=== PATIENT | female | born 1980 | race Caucasian/White ===

== ENCOUNTER 2024-09-18 11:30 | Inpatient (IN) ==
--- NOTE | 2024-09-18 12:06 | Emergency Department Note ---
Impression & Plan Suicide attempt, Depression, Hypokalemia ED Provider Note NAME: GILLES ABREU AGE: 44 SEX: F : 1980 ARRIVES VIA: Walk-In INFORMANT: Patient ED PROVIDER(S): Reece Mcknight DO CHIEF COMPLAINT: Suicide attempt HPI: Patient is a 44-year-old female who presents ER for suicide attempt. She notes that she has tried to kill her self in the past 2 to 3 weeks daily. She has been taking about 12 to 16 25mg tablets of Benadryl at night. She has not taken any for the past 48 hours. She is also taking sleeping tablets with this 1-2 gelcaps [id number]. She denies any chest pain shortness of breath. No nausea or vomiting. She does admit to feeling little shaky. No focal weakness or numbness in the arms or legs. She does also admit to a little bit of blurry vision. ADDITIONAL HISTORY OBTAINED: Per HPI Chronic Medical/Social Conditions Affecting Care: Per HPI PAST MEDICAL HISTORY:See Below PAST SURGICAL HISTORY:See Below FAMILY HISTORY:See Below SOCIAL HISTORY:See Below HOME MEDICATIONS:See Below ALLERGIES:See Below VITALS:See Below PHYSICAL EXAMINATION: GENERAL: Sitting up in bed, alert, well appearing, well nourished, no distress, non-toxic EYE EXAM: normal conjunctiva. PERRL and EOM's grossly intact. OROPHARYNX: no exudate, no erythema, lips, buccal mucosa, and tongue normal and mucous membranes are moist NECK: supple, no nuchal rigidity, no adenopathy, non-tender LUNGS: Clear to auscultation. Normal chest wall mechanics HEART: no murmurs, S1 normal and S2 normal ABDOMEN: abdomen soft, non-tender, normo-active bowel sounds, no masses, no rebound or guarding. BACK: Back is symmetrical on inspection and there is no deformity, no midline tenderness, no CVA tenderness. SKIN: no rashes and no bruising UPPER EXTREMITIES: upper extremities are grossly normal. LOWER EXTREMITIES: No pitting edema. NEURO EXAM: Normal sensorium, cranial nerves II-XII intact, normal speech, no weakness of arms, no weakness of legs. No drift. Finger to nose intact. Gross sensation intact. MEDICAL DECISION MAKING: Patient is a 44-year-old female who presents ER for the above-stated complaint. IV was established and blood work was obtained. Labs show no significant leukocytosis or anemia. BMP with mild hypokalemia at 3.4. Potassium was repleted orally. LFTs and bilirubin is unremarkable. Troponin is negative. Lipase is normal. TSH unremarkable. UA was contaminated with multiple epithelial cells. No urinary symptoms and consequently will not treat at this time. CT head was negative per radiology was obtained due to some blurry vision. Chest x-ray was unremarkable. Tox was negative. Alcohol negative. Heart rate trended down to the 90s. No signs of urinary retention and she otherwise has no complaints at this time. She was updated at bedside. Currently awaiting admission on a 201 and placement. Patient was signed out Dr. Mcgowan pending placement. Discussed with Pt concerning signs and symptoms to watch out for. Pt was instructed to follow up with their PCP and discussed with the patient their option to return to the ED at anytime for persistent or worsening symptoms. The appropriate anticipatory guidance and out-patient management, including indications for return to the emergency department, were explained at length to the patient and understood. Consults/Care Managements Discussions: Per [facility] Triage Nursing notes reviewed. Limited review of prior medical records performed Vital Signs: reviewed and remarkable for no significant abnormalities Differential diagnosis: ER treatment provided: See below Diagnostics interpreted by me include EKG and cardiac monitoring as listed below: -Cardiac Monitoring: An order was placed for continuous cardiac monitoring. The monitor shows a rate of 90 with sinus rhythm. -ECG: Sinus tachycardia rate of 103 Normal axis No PVCs QTc 466 QRS 96 -Laboratory studies:Interpreted by me as stated above in MDM and shown below. Imaging studies: Xrays: As interpreted by me: Chest x-ray is unremarkable CTs show: CT head was obtained and negative per radiology Procedures:none Critical Care: None Past Med/Surg History Problem List (Updated 09/18/24 @ 15:50 by Reece Mcknight DO) Hypokalemia (Acute) Depression (Acute) Suicide attempt (Acute) Social History Smoking Status: Never smoker Preferred Language: Maltese Feels Safe at Home: Yes Allergies Allergies Allergy/AdvReac Type Severity Reaction Status Date / Time ERYC Allergy Unknown KARRIE,NAUSEA Uncoded 09/08/02 21:28 VOMITING Results & Data (ED) Vital Signs Vital Signs - 24 hr 09/18/24 11:38 09/18/24 12:07 09/18/24 12:07 Temperature 36.6 C Temperature Source Temporal Artery Scan Pulse Rate 90 97 H Pulse Rate [Apical] 95 H Pulse Rhythm Regular Pulse Rhythm [Apical] Regular Pulse Strength [Apical] Normal Respiratory Rate 18 20 20 Respiratory Effort / Characteristics Non-Labored Spontaneous Respiratory Depth Normal Respiratory Pattern Regular Blood Pressure 143/81 H Blood Pressure [Left Arm] Blood Pressure [Right Arm] 146/99 H Blood Pressure Mean 101 Blood Pressure Mean [Left Arm] Blood Pressure Mean [Right Arm] 114 Blood Pressure Position Sitting Blood Pressure Position [Right Arm] Lying Pulse Oximetry 91 94 95 Oxygen Delivery Method Room Air Room Air Room Air Sepsis Recent Fever Within 48 Hours No Sepsis New/Unexplained Change in Mental Status N/A Sepsis Action Taken by Nursing No Action Required 09/18/24 12:14 09/18/24 14:00 09/18/24 14:28 Temperature Temperature Source Pulse Rate 95 H Pulse Rate [Apical] 83 84 Pulse Rhythm Pulse Rhythm [Apical] Regular Pulse Strength [Apical] Normal Respiratory Rate 20 18 Respiratory Effort / Characteristics Non-Labored Spontaneous Non-Labored Spontaneous Respiratory Depth Normal Normal Respiratory Pattern Regular Regular Blood Pressure Blood Pressure [Left Arm] 115/77 Blood Pressure [Right Arm] 175/76 H Blood Pressure Mean Blood Pressure Mean [Left Arm] 89 Blood Pressure Mean [Right Arm] 109 Blood Pressure Position Blood Pressure Position [Right Arm] Lying Pulse Oximetry 98 98 Oxygen Delivery Method Room Air Room Air Sepsis Recent Fever Within 48 Hours Sepsis New/Unexplained Change in Mental Status Sepsis Action Taken by Nursing Laboratory Data 09/18/24 12:03 09/18/24 12:03 Lab Results 09/18/24 09/18/24 Range/Units 12:03 12:06 WBC 7.09 (4.8-10.8) K/ul RBC 3.92 L (4.20-5.40) M/uL Hgb 12.4 (12.0-16.0) g/dl Hct 36.2 L (37.0-47.0) % MCV 92.3 (80.0-100.0) fL MCH 31.6 (25.0-34.0) pg MCHC 34.3 (32.0-36.0) g/dL RDW Std Deviation 41.4 (36.4-46.3) fL RDW Coeff of Deonte 12.2 (11.5-14.5) % Plt Count 326 (130-400) K/uL MPV 10.4 (9.4-12.4) fL Immature Gran % (Auto) 0.1 % Neut % (Auto) 65.7 % Lymph % (Auto) 28.9 % [place] % (Auto) 4.8 % Eos % (Auto) 0.1 % Baso % (Auto) 0.4 % Neut # (Auto) 4.65 (1.40-6.50) K/uL Lymph # (Auto) 2.05 (1.20-3.40) K/uL [place] # (Auto) 0.34 (0.11-0.59) K/uL Eos # (Auto) 0.01 (0.00-0.50) K/uL Baso # (Auto) 0.03 (0.00-0.20) K/uL Immature Gran # (Auto) 0.01 (0.01-0.20) K/uL Sodium 137 (136-145) mmol/L Potassium 3.4 L (3.5-5.1) mmol/L Chloride 101 (98-107) mmol/L Carbon Dioxide 26 (21-32) mmol/L Anion Gap 10 (3-11) BUN 7 (6-23) mg/dl Creatinine 0.95 (0.6-1.2) mg/dl Est Cr Clr Drug Dosing 78.1 ml/min eGFR 76.71 BUN/Creatinine Ratio 7.4 L (10-20) Glucose 96 (70-99(Fasting)) mg/dl Calcium 9.3 (8.6-10.3) mg/dl Magnesium 1.8 (1.7-2.4) mg/dl Total Bilirubin 0.5 (0.2-1.0) mg/dl AST 14 (13-39) U/L ALT 8 (7-52) U/L Alkaline Phosphatase 83 (34-104) U/L Troponin I High Sens < 2.3 (0-14) pg/ml Total Protein 8.0 (6.0-8.3) gm/dl Albumin 4.2 (3.4-5.0) gm/dl Globulin 3.8 (2.5-4.0) gm/dl Albumin/Globulin Ratio 1.1 (0.9-2) Lipase 9 L (11-82) U/L TSH 0.774 (0.300-4.500) uIu/ml Urine Color Yellow Urine Appearance Turbid A (Clear) Urine pH 6.0 (4.5-7.5) Ur Specific [place] 1.023 (1.000-1.030) Urine Protein 1+ H (Negative) Urine Glucose (UA) Negative (Negative) Urine Ketones 1+ H (Negative) Urine Blood Negative (Negative) Urine Nitrite Negative (Negative) Urine Bilirubin Negative (Negative) Urine Urobilinogen Negative (Negative) Ur Leukocyte Esterase Trace H (Negative) Urine WBC (Auto) 11-20 H (0-5) /hpf Urine RBC (Auto) 0-2 (0-2) /hpf U Hyaline Cast (Auto) 0-2 (0-2) /lpf U Epithel Cells (Auto) >20 H (0-2) /hpf Urine Bacteria (Auto) 4+ H (None Seen) Urine Mucus Present A (None Prsent) Urine Comment Salicylates < 3.0 L (3.0-30) mg/dl Urine Opiates Screen Neg (Neg) Ur Methadone, Qual Neg (Neg) Urine Fentanyl Screen Neg (Neg) Acetaminophen < 3 L (10-30) ug/ml Urine Barbiturates Neg (Neg) Ur Phencyclidine (PCP) Neg (Neg) U Amphetamin/Meth Scrn Neg (Neg) MDMA (Ecstasy) Screen Neg (Neg) U Benzodiazepines Scrn Neg (Neg) Ur Cocaine Metabolite Neg (Neg) U Marijuana (THC) Screen Neg (Neg) Ethyl Alcohol mg/dL < 10.0 (<10.0) mg/dl Administered Medications Discontinued Medications Sodium Chloride (Nss) 1,000 mls @ 999 mls/hr IV .Q1H1M [facility] Stop: 09/18/24 14:15 Last Infusion: 09/18/24 14:15 Dose: Infused Documented By: Admin: 09/18/24 13:13 Dose: 999 mls/hr Documented By: Infusion: 09/18/24 13:13 Dose: Infused Documented By: Admin: 09/18/24 12:16 Dose: 999 mls/hr Documented By: WILDER Imaging Data Radiologist's Impression: Chest X-Ray 09/18/24 11:44 XR chest 1V portable HISTORY: 44 years-old Female Chest pain, nonspecific COMPARISON: None TECHNIQUE: AP view of the chest FINDINGS: Cardiomediastinal and hilar silhouettes are within normal limits. No pneumothorax, pleural effusion, airspace consolidation or pulmonary edema. Bones appear grossly intact. IMPRESSION: No acute process. ACT 112: Negative or not required by law. The above report was generated using voice recognition software. It may contain grammatical, syntax or spelling errors. Electronically signed by: Salvador Motta M.D. 09/18/2024 12:[address] 09/18/24 12:06 CT head/brain wo con CLINICAL HISTORY: 44 years-old Female with miranda. Acute headache TECHNIQUE: Multiple axial CT images of the head were obtained without contrast. A dose lowering technique was utilized adhering to the principles of ALARA. CT DOSE: 547.75 mGy.cm COMPARISON: None. FINDINGS: No acute intracranial hemorrhage, midline shift, intracranial mass, hydrocephalus, territorial ischemia or abnormal extra-axial collection. The calvarium is intact. The paranasal sinuses, mastoid air cells, and middle ear cavities are clear. IMPRESSION: No acute intracranial abnormality. ACT 112: Negative or not required by law. The above report was generated using voice recognition software. It may contain grammatical, syntax or spelling errors. Electronically signed by: Salvador Motta M.D. 09/18/2024 12:58 PM Discharge Plan Visit Data Chief Complaint: Mental Health Evaluation Stated Complaint: BLURRY VISION, STOMACH PN, DRY MOUTH, MEMMORY LOSS ED Provider: Guy Haney Discharge Problem: Suicide attempt, Depression, Hypokalemia Condition: Fair Forms Stand Alone Forms: [facility], Suicide Prevention Resources Referrals Referrals: PCP,NO [Physician] - Discharge Problem: Depression Qualifiers: Depression Type: unspecified Qualified Code(s): F32.A - Depression, unspecified
[2024-09-18] MEDS: SODIUM CHLORIDE 0.9% 1,000 ML IV SCH (12:16)
--- NOTE | 2024-09-18 12:16 | XRay Report ---
XR chest 1V portable HISTORY: 44 years-old Female Chest pain, nonspecific COMPARISON: None TECHNIQUE: AP view of the chest FINDINGS: Cardiomediastinal and hilar silhouettes are within normal limits. No pneumothorax, pleural effusion, airspace consolidation or pulmonary edema. Bones appear grossly intact. IMPRESSION: No acute process. ACT 112: Negative or not required by law. The above report was generated using voice recognition software. It may contain grammatical, syntax o r spelling errors. Electronically signed by: Salvador Motta M.D. 09/18/2024 12:15 PM
[2024-09-18 12:20] LABS: Hematocrit (blood only) 36.2 % (37.0-47.0); Hemoglobin 12.4 g/dl (12.0-16.0); Immature Granulocytes # (auto) 0.01 K/uL (0.01-0.20); Immature Granulocytes % (auto) 0.1 %; Mean Corpuscular Hemoglobin 31.6 pg (25.0-34.0); Mean Corpuscular Volume 92.3 fL (80.0-100.0); Platelet Count 326 K/uL (130-400); RDW Standard Deviation 41.4 fL (36.4-46.3); Red Blood Count 3.92 M/uL (4.20-5.40); White Blood Count 7.09 K/ul (4.8-10.8)
--- NOTE | 2024-09-18 12:24 | Electrocardiogram Report ---
Test Reason : Blood Pressure : */* mmHG Vent. Rate : 103 BPM Atrial Rate : 103 BPM P-R Int : 138 ms QRS Dur : 96 ms QT Int : 356 ms P-R-T Axes : 53 53 44 degrees QTcB Int : 466 ms Sinus tachycardia Left atrial enlargement Incomplete right bundle branch block Borderline ECG No previous ECGs available Confirmed by Karine Alvarez (Alexsandra) on 09/18/2024 12:23:49 PM Referred By: Confirmed By: Karine Alvarez
[2024-09-18 12:36] LABS: Alanine Aminotransferase 8 U/L (7-52); Albumin Globulin Ratio 1.1 (0.9-2); Alkaline Phosphatase 83 U/L (34-104); Anion Gap 10 (3-11); Bilirubin,Total 0.5 mg/dl (0.2-1.0); Blood Urea Nitrogen 7 mg/dl (6-23); Calcium 9.3 mg/dl (8.6-10.3); Carbon Dioxide 26 mmol/L (21-32); Chloride 101 mmol/L (98-107); Creatinine Clr Calc Pharmacy 78.1 ml/min; Globulin 3.8 gm/dl (2.5-4.0); Glucose 96 mg/dl (70-99(Fasting)); Lipase 9 U/L (11-82); Magnesium 1.8 mg/dl (1.7-2.4); Potassium 3.4 mmol/L (3.5-5.1); Sodium 137 mmol/L (136-145); Total Protein 8.0 gm/dl (6.0-8.3)
[2024-09-18 12:52] LABS: Thyroid Stimulating Hormone 0.774 uIu/ml (0.300-4.500)
--- NOTE | 2024-09-18 13:00 | CT Scan Report ---
CT head/brain wo con CLINICAL HISTORY: 44 years-old Female with miranda. Acute headache TECHNIQUE: Multiple axial CT images of the head were obtained without contrast. A dose lowering tech nique was utilized adhering to the principles of ALARA. CT DOSE: 547.75 mGy.cm COMPARISON: None. FINDINGS: No acute intracranial hemorrhage, midline shift, intracranial mass, hydrocephalus, territorial ischem ia or abnormal extra-axial collection. The calvarium is intact. The paranasal sinuses, mastoid air cells, and middle ear cavities are clear . IMPRESSION: No acute intracranial abnormality. ACT 112: Negative or not required by law. The above report was generated using voice recognition software. It may contain grammatical, syntax o r spelling errors. Electronically signed by: Salvador Motta M.D. 09/18/2024 12:58 PM
[2024-09-18 13:04] LABS: Acetaminophen < 3 ug/ml (10-30); Salicylate < 3.0 mg/dl (3.0-30)
[2024-09-18 13:06] LABS: Appearance Urine Turbid (Clear); Bacteria Urine Automated 4+ (None Seen); Epithelial Cell Urine Auto >20 /hpf (0-2); Glucose Urine UA Negative (Negative)
[2024-09-18 13:16] LABS: Cast Urine Automated 0-2 /lpf (0-2); RBC Urine Automated 0-2 /hpf (0-2)
[2024-09-18 13:47] LABS: Amphetamines+Metham, Urine Neg (Neg); MDMA (Ecstacy), Urine Neg (Neg); Marijuana, Urine Neg (Neg)
--- NOTE | 2024-09-18 16:06 | Emergency Department Note ---
ED Visit Note Received this patient in signout from Dr. Mcknight. Patient with suicidal thoughts and attempts. Was cleared by Dr. Mcknight who had consultation with poison control given history of some OTC sleep aids and Benadryl use but not in the last 48 hours. Medically cleared and bed search is in progress with case management. Patient was accepted to [facility] [address] for further inpatient care on a 201. .
[2024-09-18] MEDS: POTASSIUM CHLORIDE CRTAB 20 MEQ TABCR PO STA (16:26)
[2024-09-18] MEDS ORDERED: BISMUTH SUBSALICYLATE 262 MG CHEW PO PRN (21:46)
[2024-09-18] MEDS ORDERED: ALUMINUM/MAGNESIUM SUSP 30 ML UDC PO PRN (21:46)
[2024-09-18] MEDS ORDERED: SODIUM CHLORIDE 0.65% NA SOLN 45 ML (OCEAN) PRN (21:46)
[2024-09-18] MEDS ORDERED: MAGNESIUM HYDROXIDE SUSP 30 ML UDC PO PRN (21:46)
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
[2024-09-19] MEDS: ACETAMINOPHEN 325 MG TAB PO PRN (14:10)
--- NOTE | 2024-09-20 12:55 | Psychiatric Progress Note ---
Date of Service September 20, 2024 Impression / Recommendations Impression GILLES ABREU is a 44-year-old F who currently lives in with her partner, has a history of depression, and was admitted on 09/18/24 20:27 on a 201 voluntary commitment for concerns about suicidal ideation. Patient presented to the ER reported she recently ingested large amount of Benadryl (12 to 16 25mg tablets ). She was cleared by Dr. Mcknight who had consultation with poison control given history of some OTC sleep aids and Benadryl use but not in the last 48 hours. She presented with symptoms of depression (sadness, anhedonia, poor concentration, insomnia) and anxiety (constant worry, pessimistic ingressive thoughts. She is complaining about symptoms likely related to anticholinergic effect of large doses of Benadryl (blurry vision, dry mucosa, slow thoughts processing). Patient had good initial experience with first dose of Paxil. Tolerating the medication well. Denied suicidal ideation today. (1) Depression: (2) Suicide attempt: Continue suicide precautions. Plan 09/20/24: Continue medications without changes. 09/19/24: The patient was admitted to the [facility] on q15 min checks (behavioral with suicide precautions) for safety. The patient will participate in group, recreational, and milieu therapies and will be offered additional individual and family sessions as clinically appropriate. Start Paxil 20 mg. PO qhs Side effects discussed including sedation, increased appetite, weight gain, dry mouth, constipation. Overall, I spent a total of 30minutes with this case, including review of chart, direct evaluation of the patient, counseling the patient, coordination with nursing, risk assessment,and documentation. 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 Patient with a rn social work later what is best for you to hire someone of a psychiatrist in 3 S. and I am trying to connect remotely with my personal computer with my laptop but is giving an error the last time I use this was a year and a half ago and I recently changed my password and the on the desktop son. They are all and the new password is not letting me says there is a problem with your account cannot help this I have context of suicidal ideation. Chief Complaint "I've been thinking a lot. I need to process all the decisions I need to make." Review of Systems Sleep Information Total Hours of Sleep: 7.75 Meal Information Percent Meal Consumed - Breakfast: 50 Percent Meal Consumed - Lunch: 100 Percent Meal Consumed - Dinner: 90 Subjective Subjective Patient was seen & assessed and interval progress reviewed with nursing and social work. Patient reported improvement of sadness but continues to experience high anxiety, ruminating thoughts about her relationship stressors and some grief and regret about her perceived lost ability to experience motherhood. She took the first dose of Paxil and denied side effects. Patient indicated she did not sleep well last night but does not believe it was caused by the medication. Physical Exam Psychiatric Orientation: alert and oriented x 3 Apperance: appropriately dressed Eye Contact: good eye contact Motor Behavior: steady gait and station Affect: + anxious affect Thought Process: goal directed thought process Thought Content: + cognitive distortions, + loneliness and + guilt; no worthlessness and no self deprecation Suicidal Thoughts: denies suicidal plan Homicidal Thoughts: denies homicidal thoughts Hallucinations: no auditory hallucinations Cognition: recent memory grossly intact Insight: + fair insight Judgment: + fair judgement Vital Signs (Past 24 Hours) Last Vital Signs Temp 36.8 C 09/20/24 06:24 Pulse 91 H 09/20/24 06:24 Resp 16 09/20/24 06:24 BP 129/84 09/20/24 06:25 Pulse Ox 99 09/18/24 22:01 O2 Del Method Room Air 09/20/24 06:24 Results & Data ([facility]) Current Inpatient Medications Current Inpatient Medications: Current Inpatient Medications Acetaminophen (Acetaminophen 325 Mg Tab) 650 mg PO Q4H PRN PRN Reason: Headache or Minor Fever Stop: 10/18/24 21:45 Last Admin: 09/19/24 14:10 Dose: 650 mg Al Hydrox/Mg Hydrox/Simethicone (Aluminum/Magnesium Susp 30 Ml Udc) 30 ml PO Q4H PRN PRN Reason: GI Upset Stop: 10/18/24 21:45 Bismuth Subsalicylate (Bismuth Subsalicylate 262 Mg Chew) 2 tab PO Q30M PRN PRN Reason: Loose Stool/Diarrhea Stop: 10/18/24 21:45 Hydroxyzine HCl (Hydroxyzine Hcl 25 Mg Tab) 50 mg PO HSZ PRN PRN Reason: Insomnia Stop: 10/18/24 21:45 Hydroxyzine HCl (Hydroxyzine Hcl 25 Mg Tab) 25 mg PO Q4H PRN PRN Reason: Anxiety Stop: 10/18/24 21:45 Magnesium Hydroxide (Magnesium Hydroxide Susp 30 Ml Udc) 30 ml PO DAILY PRN PRN Reason: Constipation Stop: 10/18/24 21:45 Paroxetine HCl (Paroxetine Hcl 20 Mg Tab) 20 mg PO HS LISA Stop: 10/19/24 21:59 Last Admin: 09/19/24 20:43 Dose: 20 mg Sodium Chloride (Sodium Chloride 0.65% Na Soln 45 Ml ([place])) 1 - 2 sprays NA PRN PRN PRN Reason: Nasal Dryness/Congestion Stop: 10/18/24 21:45 Mental Health & Subst Abuse Tx Therapist Name of Therapist: N/A Receptionist/Telephone Operator Name of Receptionist/Telephone Operator: N/A Post Discharge Appointments Primary Care Physician Name Of Family Doctor/PCP: Dr. Olivia Roach (1) Depression Depression Type: unspecified Qualified Code(s): F32.A - Depression, unspecified
--- NOTE | 2024-09-21 09:35 | Psychiatric Progress Note ---
Date of Service September 21, 2024 Impression / Recommendations Impression GILLES ABREU is a 44-year-old F who currently lives in with her partner, has a history of depression, and was admitted on 09/18/24 20:27 on a 201 voluntary commitment for concerns about suicidal ideation. Patient presented to the ER reported she recently ingested large amount of Benadryl (12 to 16 25mg tablets ). She was cleared by Dr. Mcknight who had consultation with poison control given history of some OTC sleep aids and Benadryl use but not in the last 48 hours. She presented with symptoms of depression (sadness, anhedonia, poor concentration, insomnia) and anxiety (constant worry, pessimistic ingressive thoughts. She is complaining about symptoms likely related to anticholinergic effect of large doses of Benadryl (blurry vision, dry mucosa, slow thoughts processing). Patient showing improvement of her condition. Tolerating the medication well. Denied suicidal ideation today. Will prepare for discharge tomorrow. Overall, I spent a total of 30minutes with this case, including review of chart, direct evaluation of the patient, counseling the patient, coordination with nursing, risk assessment,and documentation. (1) Depression: (2) Suicide attempt: Continue suicide precautions. Plan 09/21/24: Continue medications without changes. Prepare for discharge tomorrow 09/20/24: Continue medications without changes. 09/19/24: The patient was admitted to the [facility] ([facility]) on q15 min checks (behavioral with suicide precautions) for safety. The patient will participate in group, recreational, and milieu therapies and will be offered additional individual and family sessions as clinically appropriate. Start Paxil 20 mg. PO qhs Side effects discussed including sedation, increased appetite, weight gain, dry mouth, constipation. 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 Chief Complaint "My head is clearer. I don't feel like people are pulling me in six different directions". Review of Systems Sleep Information Total Hours of Sleep: 7.75 Meal Information Percent Meal Consumed - Breakfast: 50 Percent Meal Consumed - Lunch: 100 Percent Meal Consumed - Dinner: 50 Subjective Subjective Patient was seen & assessed and interval progress reviewed with nursing and social work. Patient reported her emotions are better today. She feels less depressed, and less anxious. However, she admits that the problem of having suicidal ideations is not new. Patient stated, it has always been a thought process. I never told anyone until college. They put me on Effexor and I was going to therapy then." Patient cannot recall why she stopped the medication and therapy. When asked to compare the recent episode to previous episodes patient stated, "This probably the worse I've had in a long time." When asked to compare her response to Effexor with her experience with Paxil, patient stated that when she was taking Effexor she needed an added medication for sleep (Lunesta) worse with Paxil her sleep pattern is improved. She denies side effects. Denies suicidal ideation plan or intent. Patient endorses of anxiety related to returning to her parents house but feels that this is her best option. She does not want to return to the home her boyfriend. She appears to have some anticipatory anxiety regarding her return to work. Physical Exam Psychiatric Orientation: alert and oriented x 3 Apperance: appropriately dressed Eye Contact: good eye contact Motor Behavior: steady gait and station Affect: + anxious affect Thought Process: goal directed thought process Thought Content: + loneliness and + guilt Suicidal Thoughts: denies suicidal plan Homicidal Thoughts: denies homicidal thoughts Hallucinations: no auditory hallucinations Cognition: recent memory grossly intact Insight: + fair insight Judgment: + fair judgement Vital Signs (Past 24 Hours) Last Vital Signs Temp 36.7 C 09/21/24 06:31 Pulse 89 09/21/24 06:32 Resp 16 09/21/24 06:31 BP 115/76 09/21/24 06:32 Pulse Ox 99 09/18/24 22:01 O2 Del Method Room Air 09/20/24 06:24 Results & Data ([facility]) Current Inpatient Medications Current Inpatient Medications: Current Inpatient Medications Acetaminophen (Acetaminophen 325 Mg Tab) 650 mg PO Q4H PRN PRN Reason: Headache or Minor Fever Stop: 10/18/24 21:45 Last Admin: 09/20/24 17:35 Dose: 650 mg Al Hydrox/Mg Hydrox/Simethicone (Aluminum/Magnesium Susp 30 Ml Udc) 30 ml PO Q 4H PRN PRN Reason: GI Upset Stop: 10/18/24 21:45 Bismuth Subsalicylate (Bismuth Subsalicylate 262 Mg Chew) 2 tab PO Q30M PRN PRN Reason: Loose Stool/Diarrhea Stop: 10/18/24 21:45 Hydroxyzine HCl (Hydroxyzine Hcl 25 Mg Tab) 50 mg PO HSZ PRN PRN Reason: Insomnia Stop: 10/18/24 21:45 Hydroxyzine HCl (Hydroxyzine Hcl 25 Mg Tab) 25 mg PO Q4H PRN PRN Reason: Anxiety Stop: 10/18/24 21:45 Magnesium Hydroxide (Magnesium Hydroxide Susp 30 Ml Udc) 30 ml PO DAILY PRN PRN Reason: Constipation Stop: 10/18/24 21:45 Paroxetine HCl (Paroxetine Hcl 20 Mg Tab) 20 mg PO HS LISA Stop: 10/19/24 21:59 Last Admin: 09/20/24 20:18 Dose: 20 mg Sodium Chloride (Sodium Chloride 0.65% Na Soln 45 Ml ([place])) 1 - 2 sprays NA PRN PRN PRN Reason: Nasal Dryness/Congestion Stop: 10/18/24 21:45 Mental Health & Subst Abuse Tx Therapist Name of Therapist: N/A Social Media Marketing Specialist Name of Social Media Marketing Specialist: N/A Post Discharge Appointments Primary Care Physician Name Of Family Doctor/PCP: Dr. Olivia Roach Primary Care Date of Future Appointment with PCP: 10/03/24 Time of Appointment with PCP: 12:00 Provider Appointment Comment: Arrive by 11:45 for check in - [facility] [place] Location (1) Depression Depression Type: unspecified Qualified Code(s): F32.A - Depression, unspecified
--- NOTE | 2024-09-22 09:06 | Discharge Summary ---
Date of Service September 22, 2024 History of Present Illness Patient reported that she was doing well until a few months ago when she started feeling increasingly depressed. She explained that for the last 3 years she has been having second thoughts about her romantic relationship. Stated her current boyfriend is "unemotional" and she has started to see a friend/love interest and believes her family won't accept this. She left the home she shared with her boyfriend and went to stay at her parents house. It was at her parents house when she started to experience suicidal ideations.Patient reported that the suicidal thoughts started as an idea of not wanting to be a burden for her family; however, she started to worry about how doing something like this could hurt her family and decided to seek help. She reports severe anxiety with constant worry. Ruminations at night are the main reason of having difficulty to fall asleep. Denied feelings of excessive energy. Patient reported a long history of insomnia. The difficulty sleeping appears to be episodic, during which she feels decreased need for sleep. She reported sleepless nights up to 2 nights in a row and feeling "okay the next day" but denies any associated symptoms consistent with hanh or hypomania during those episodes. Patient also has been struggling with regrets about tubal ligation procedure that she had when she was . The regrets have increased since her sister had a baby a month ago. She raised other concerns including possible exposure to environmental chemicals. [place] and [place] has heard comments about women in the area being diagnosed with cancer at a higher rate than other nearby communities. On exam, there is no evidence of thought or behavior disorganization. She denied hallucinations. Physical Exam Mental Examination Mood: Anxious ("a little anxious about work") Affect: Stable Thought Process: Intact and Linear Hallucinations: None Psychiatric Orientation: alert and oriented x 3 Apperance: appropriately dressed Eye Contact: good eye contact Motor Behavior: steady gait and station Affect: euthymic affect Thought Process: goal directed thought process Thought Content: no worthlessness, no loneliness and no self deprecation Suicidal Thoughts: denies suicidal plan Homicidal Thoughts: denies homicidal thoughts Hallucinations: no auditory hallucinations Cognition: recent memory grossly intact Insight: good insight Judgment: good judgement Vital Signs (Past 24 Hours) Last Vital Signs Temp 36.7 C 09/22/24 06:26 Pulse 109 H 09/22/24 06:27 Resp 16 09/22/24 06:26 BP 116/74 09/22/24 06:27 Pulse Ox 99 09/18/24 22:01 O2 Del Method Room Air 09/20/24 06:24 See admission H&P, MSE per above and day of discharge summary. Principal Diagnosis Generalized anxiety Disorder MDD recurrent moderate Psychiatric Data See daily stay summary. In short, safety was maintained and the patient was cooperative with care. Medication changes included starting Paxil and they tolerated this well. A family session was not held (at patient's request) and safety plan was completed prior to discharge. Day of Discharge Assessment Today the patient voices readiness for discharge. They note improvement in mood and deny thoughts to harm self or others. Thoughts remain organized and they are improved from admission. There is no evidence of psychosis. They agree to take mediations as prescribed and keep follow-up appointments. They are stable for discharge to outpatient level of care. Transition of Care Transition Of Care Record: was reviewed with the patient Advance Directives Advance Directives Information Provided: Yes Advance Directives: No Mental Health Advance Directive: No Advance Directives on File: No Living Will: No Power of Child Care Sitter: No Advance Directives Reason:: Declines as Mental Health Visit. Suicide Risk Level Suicide Risk Level: Low (q15 min observation checks) Risk Factors Assessment : Yes Do You Have Access To A Gun?: No Health Problems: No Mental Health Diagnoses: Yes Substance Use Disorders: No Previous Attempt: Yes Family History of Suicide: No Previous Psychiatric Hospitalization: No Hopelessness: No Protective Factors Assessment Responsible for Young Children: No Employed: Yes ([employer], [employer]) Supportive Family: Yes Good Rapport with Provider: Yes Total Time Total Time Spent: Greater Than 30 Minutes Discharge Data Lab Results 09/18/24 09/18/24 09/18/24 12:03 12:06 18:19 WBC 7.09 RBC 3.92 L Hgb 12.4 Hct 36.2 L MCV 92.3 MCH 31.6 MCHC 34.3 RDW Std Deviation 41.4 RDW Coeff of [place] 12.2 Plt Count 326 MPV 10.4 Immature Gran % (Auto) 0.1 Neut % (Auto) 65.7 Lymph % (Auto) 28.9 [place] % (Auto) 4.8 Eos % (Auto) 0.1 Baso % (Auto) 0.4 Neut # (Auto) 4.65 Lymph # (Auto) 2.05 [place] # (Auto) 0.34 Eos # (Auto) 0.01 Baso # (Auto) 0.03 Immature Gran # (Auto) 0.01 Sodium 137 Potassium 3.4 L Chloride 101 Carbon Dioxide 26 Anion Gap 10 BUN 7 Creatinine 0.95 Est Cr Clr Drug Dosing 78.1 eGFR 76.71 BUN/Creatinine Ratio 7.4 L Glucose 96 Calcium 9.3 Magnesium 1.8 Total Bilirubin 0.5 AST 14 ALT 8 Alkaline Phosphatase 83 Troponin I High Sens < 2.3 Total Protein 8.0 Albumin 4.2 Globulin 3.8 Albumin/Globulin Ratio 1.1 Lipase 9 L TSH 0.774 Urine Color Yellow Urine Appearance Turbid A Urine pH 6.0 Ur Specific [place] 1.023 Urine Protein 1+ H Urine Glucose (UA) Negative Urine Ketones 1+ H Urine Blood Negative Urine Nitrite Negative Urine Bilirubin Negative Urine Urobilinogen Negative Ur Leukocyte Esterase Trace H Urine WBC (Auto) 11-20 H Urine RBC (Auto) 0-2 U Hyaline Cast (Auto) 0-2 U Epithel Cells (Auto) >20 H Urine Bacteria (Auto) 4+ H Urine Mucus Present A Urine Comment Salicylates < 3.0 L Urine Opiates Screen Neg Ur Methadone, Qual Neg Urine Fentanyl Screen Neg Acetaminophen < 3 L Urine Barbiturates Neg Ur Phencyclidine (PCP) Neg U Amphetamin/Meth Scrn Neg MDMA (Ecstasy) Screen Neg U Benzodiazepines Scrn Neg Ur Cocaine Metabolite Neg U Marijuana (THC) Screen Neg Ethyl Alcohol mg/dL < 10.0 SARS-CoV-2, RNA, NAAT NEGATIVE Hospital Course (1) Depression: (2) Suicide attempt: Continue suicide precautions. Plan 09/22/24: Tolerating medication well. Good initial response. Ready for di scharge. 09/21/24: Continue medications without changes. Prepare for discharge tomorrow 09/20/24: Continue medications without changes. 09/19/24: The patient was [facility]) on q15 min checks (behavioral with suicide precautions) for safety. The patient will participate in group, recreational, and milieu therapies and will be offered additional individual and family sessions as clinically appropriate. Start Paxil 20 mg. PO qhs Side effects discussed including sedation, increased appetite, weight gain, dry mouth, constipation. Mental Health & Subst Abuse Tx Therapist Name of Therapist: [facility] - Zulma Corado Therapist's Date of Therapist Appointment: 09/27/24 Time of Therapist Appointment: 2PM Therapy Appointment Comment: In Person - [address] [facility], [place] [address] Gaming Cage Cashier Name of Gaming Cage Cashier: N/A Post Discharge Appointments Primary Care Physician Name Of Family Doctor/PCP: Dr. Olivia Roach Primary [facility] Date of Future Appointment with PCP: 10/03/24 Time of Appointment with PCP: 12:00 Provider Appointment Comment: Arrive by 11:45 for check in - [facility] Location Contact Information Discharge Discharge Address: [address] [place] [address] [address] [place] [id number] Discharge Plan Discharge Items Patient Disposition: Home - Self-Care Reason For Visit: UNSPECIFIED DEPRESSIVE DISORDER Discharge Diagnosis: MDD Recurrent, Moderate Generalized anxiety disorder Condition on Discharge: Fair Activity: Resume your previous activity Non-emergency contact: Primary Care Provider Call non-emergency contact if: you have any medication questions and your symptoms worsen Follow-up/Referrals: Olivia Silva PA-C [Primary Care Provider] - Diet: Regular Addtl Attending Provider Instructions: SPECIAL CARE INSTRUCTIONS: 1. Follow through with your scheduled aftercare appointments. If unable to keep an appointment, please call to reschedule. 2. Take your medication only as prescribed. Medication should not be changed or stopped without the approval of your doctor. In the event of worsening symptoms or concerns about side effects, contact your doctor immediately. 3. Utilize new healthy coping skills, anger management skills, and stress management skills learned during your hospitalization. Journal feelings and process them with a support person. Identify stressors or situations that may result in relapse, deterioration or inappropriate behaviors and develop a plan to deal with those issues. 4. If your coping skills are ineffective and you are in crisis, contact your o utpatient providers for direction. If unable to reach your providers, please call the [facility] CRISIS LINE AT , go to the [facility] walk-in center at [address], [place], or go to the closest Emergency Room. 5. Avoid alcohol and un-prescribed drugs. 6. You have been provided with the Mental Health Advance Directives Pamphlet for your review. 7. Your condition is stable for discharge to outpatient level of care, but recovery is an ongoing process. Ifthoughts to harm yourself or others return, follow the safety plan developed during your stay. Planning for a safe return home includes securing weapons. Our treatment team recommends weaponsbe removed from the home until your outpatient provider reassesses your progress. In rare cases where the items themselvescannot be removed, guns and ammunitionshould be secured separatelyand keys stored by a reliable personoutside of the home. If you were admitted on an involuntary commitment, the police or other legal authorities may be involved in this process. AFTERCARE APPOINTMENTS: * Please call your insurance company prior to your scheduled appointment to confirm your aftercare providers are covered. Take your insurance information to your appointments. WHO TO CALL AND WHEN: Medical Emergencies: For questions or emergencies related to your hospital stay, please contact the Inpatient Behavioral Health Unit at [phone]. A nurse clinician is on-call 01/09 for the Behavioral Health Unit for emergencies At any time you feel your situation is an emergency, you may also call 911 immediately. Pending Studies at Discharge: No Stand-Alone Forms: My [facility], Smoking Cessation Medications and DC Order Prescriptions: New paroxetine HCl 20 mg Tablet 20 mg PO HS Qty: 45 0RF Discontinued diphenhydramine HCl [Benadryl] 50 mg Capsule 50 mg PO HS PRN (Reason: Allergy Symptoms) Patient Comments: Reports taking OTC for hives since 2009; recently started taking for sleep starting 2 months ago; 2 weeks ago began to take increasing amounts leading to overdose Discharge Orders: Discharge Order (Routine); Ordered 09/22/24 Ordered By: Geovanna Franco Admission Data Admit Date/Time: 09/18/24 20:27 Attending Provider: Geovanna Rodriguez Admit Provider: Geovanna Rodriguez Primary Care Provider: Olivia Silva. Other Interventions: Discharge Summary Assessment (RN) Last Done: 09/22/24 09:13 C[place] [address] D/C day mgmt > 30 min Patient Type Established History Detailed Exam Detailed Medical Decision Making Low Complexity Diagnoses Depression F32.A Depression Type: unspecified Suicide attempt T14.91XA Time Spent (min) 35
== END 2024-09-22 09:57 | disposition home or self-care (01) | DRG 880 ==
LOC: ED 11:30 → 3S 20:27